=== PATIENT | male | born 1970 | race Caucasian/White ===

== ENCOUNTER 2020-02-14 11:46 | Emergency (ER) | payer MEDICAID, SELFPAY ==
[2020-02-14 11:58] VITALS: BP 117/71; PULSE 76; RESP 16; TEMP 36.9; O2SAT 98
--- NOTE | 2020-02-14 12:19 | ED.ABDPAIN ---
HPI - Abdominal Pain General Chief Complaint: Abdominal Pain Stated Complaint: abd pain Time Seen by Provider: 02/14/20 12:19 Source: patient and RN notes reviewed Mode of arrival: ambulatory Limitations: no limitations History of Present Illness HPI narrative: Patient presents today with a 10 to 14-day history of right upper quadrant abdominal pain. Reports the pain is constant, but does wax and wane. He also reports decreased appetite for same timeframe, with 15 pound weight loss so far. Denies fever, nausea, vomiting, diarrhea, depression, urinary symptoms, URI symptoms. Currently rates his pain 4/10. Pain is worse after eating. He has been using cannabis with relief. Pain decreases if he lies on his right side. History of appendectomy. MD elicited complaint: abdominal pain Related Data Home Medications Medication Instructions Recorded Confirmed No Home Medications 02/14/20 02/14/20 Allergies Allergy/AdvReac Type Severity Reaction Status Date / Time No Known Allergies Allergy Verified 02/14/20 11:53 Review of Systems Review of Systems: Narrative: CONSTITUTIONAL: Denies body aches, fever, chills, or sweats. EYES: Denies visual changes, redness, or discharge. ENT: Denies rhinorrhea, congestion, sore throat, or otalgia. CARDIOVASCULAR: Denies chest pain, palpitations, or edema. RESPIRATORY: Denies cough or dyspnea. GASTROINTESTINAL: Denies nausea, vomiting, or diarrhea.+ At upper quadrant abdominal pain, decreased appetite GENITOURINARY: Denies dysuria or hematuria. SKIN: Denies rash, itching, or wounds. MUSCULOSKELETAL: Denies back pain, joint pain, or myalgia. NEUROLOGIC: Denies headache, numbness, tingling, or weakness. PSYCH: Denies depression or anxiety. [facility] Surgical History Surgical History (Updated 02/14/20 @ 12:22 by Ila Keith, [facility], ) History of appendectomy Family History Family History (Updated 08/09/19 @ 08:07 by DOCTOR UNKNOWN) Other Diabetes mellitus Family history of malignant neoplasm Social History Social History Smoking status: Former smoker Smoking end date: 11/03/08 Alcohol intake: current Gender identity (if verbalized by the patient): Male Comments At time of signature, I have reviewed and agree with nursing past medical, surgical, social and family history unless otherwise noted. Please see nursing chart for further information. There is no relevant family history pertinent to the presenting complaint Exam Narrative: Exam Narrative: GENERAL: Well-appearing, well-nourished, moderate pain distress, guarding the right abdomen upon arrival. HEAD: Normocephalic, atraumatic. EYES: EOMI. No redness or drainage. Conjunctivae normal. ENT: Mucous membranes pink and moist. NECK: Normal AROM. Supple. No lymphadenopathy. CHEST: No respiratory distress. Clear to auscultation. HEART: Regular rate and rhythm. No murmur appreciated. Normal peripheral pulses. ABDOMEN: Soft, nondistended, normal active bowel sounds. Tenderness to the right upper quadrant with even light touch. + Rebound of the right upper abdomen. EXTREMITIES: Normal range of motion. No edema. SKIN: Warm, dry, no rash. Capillary refill normal. Normal skin turgor. NEURO: No focal deficits. Alert and oriented x3. Gait steady. PSYCH: Normal affect. No signs of depression or anxiety. Course Vital Signs Vital signs: Vital Signs Temperature 98.4 F 02/14/20 11:58 Pulse Rate 76 02/14/20 11:58 Respiratory Rate 16 02/14/20 11:58 Blood Pressure 117/71 02/14/20 11:58 Pulse Oximetry 98 02/14/20 11:58 Temperature 98.4 F 02/14/20 11:58 Pulse Rate 76 02/14/20 11:58 Respiratory Rate 16 02/14/20 11:58 Blood Pressure 117/71 02/14/20 11:58 Pulse Oximetry 98 02/14/20 11:58 Reviewed Transfer Transfered to: Aly Transfer rationale: Abdominal pain Accepting physician: Harshil MDM - Abdominal Pain MDM Narrative Medical decision making narrative: Jeancarlos
== END 2020-02-14 12:20 | disposition short-term general hospital (02) ==
PROVIDERS: Emergency Provider Nurse Practitioner
DX: R10.11 Right upper quadrant pain (principal); Z87.891 Personal history of nicotine dependence
CPT/HCPCS: 99212; G0463

== ENCOUNTER 2020-02-14 12:45 | Emergency (ER) | payer MEDICAID, SELFPAY ==
--- NOTE | ~2020-02-14 | CT_ITS ---
EXAMINATION: CT abdomen pelvis w con DATE: 02/14/2020 14:11 INDICATION: Abdominal pain TECHNIQUE: Computed tomography (CT) of the abdomen and pelvis was performed with 100 cc Omnipaque 350 intravenous contrast. The dose-length product was 350.25 mGy-cm. Automated exposure control and iter ative reconstruction technique were employed. COMPARISON: CT dated 05/30/2018 FINDINGS: Lung bases are unremarkable. Heart size normal. No significant pleural or pericardial effus ion. There are multiple ventral supraumbilical hernias containing fat. There is an umbilical hernia c ontaining small bowel which appears to be at least partially obstructed. No evidence for strangulatio n. Colonic diverticulosis without evidence for diverticulitis. The liver, spleen, pancreas, adrenal g lands and kidneys are unremarkable. No significant vascular abnormality. No lymphadenopathy. No abnor mal pelvic masses or fluid collections. No acute osseous abnormality. IMPRESSION: 1. Umbilical hernia containing small bowel which appears to be at least partially obstructed. 2: Multiple ventral supraumbilical hernias containing fat. Reviewed, dictated and finalized at location A. IMPRESSION: 1. Umbilical hernia containing small bowel which appears to be at least partial ly obstructed. 2: Multiple ventral supraumbilical hernias containing fat.
--- NOTE | ~2020-02-14 | US_ITS ---
EXAMINATION: US right upper quadrant EXAM DATE: 02/14/2020 13:50 INDICATION: Right upper quadrant abdominal pain. TECHNIQUE: Multiple grayscale and Doppler images of the abdomen right upper quadrant were obtained (b y a technologist who performed the scan) and subsequently reviewed. Comparison is made to prior exami nation from 09/12/2014. FINDINGS: The pancreatic head and body are normal in appearance. The pancreatic tail is not visualized. The l iver has normal echogenicity and contour. There are no focal liver lesions identified. There is no evidence of intrahepatic biliary duct dilation. Portal venous flow was seen in the hepatopedal, nor mal direction and has normal Doppler waveform. No right-sided hydronephrosis. Common bile duct measures 4 mm, which is normal. The gallbladder wall is normal in thickness, with ex pected amount of distention. No sonographic evidence of pericholecystic fluid. There is no cholelit hiases. There is gallbladder adenomyomatosis. Technologist performing exam reports patient did not de monstrate sonographic Alex's sign. Please note that this sign is less reliable in patients who hav e received pain medication. IMPRESSION: Gallbladder adenomyomatosis. Otherwise unremarkable exam. Reviewed, dictated and finalized at location B.
[2020-02-14 12:50] VITALS: PULSE 64; RESP 16; TEMP 36.6; O2SAT 100
[2020-02-14 13:06] LABS: Basophils Absolute Auto 0.1 K/mm3 (0.0-0.1); Basophils Percent Auto 0.6 % (0.2-1.2); Eosinophils Absolute Auto 0.2 K/mm3 (0-0.3); Eosinophils Percent Auto 2.2 % (0-4.4); Hematocrit 45.4 % (42.0-52.0); Immature Granulocyte Absolute 0.09 K/mm3 (0.00-0.031); Immature Granulocyte Percent A 0.9 % (0-0.5); Lymphocytes Absolute Auto 2.94 K/mm3 (0.9-3.2); Lymphocytes Percent Auto 30.1 % (18.3-44.2); Mean Corpuscular Hemoglobin 29.6 pg (26-34); Mean Corpuscular Volume 89.7 fl (80-100); Mean Platelet Volume 9.4 fl (7.4-10.4); Monocytes Absolute Auto 0.9 K/mm3 (0.1-0.6); Monocytes Percent Auto 8.9 % (2.6-8.5); Neutrophils Absolute Auto 5.6 K/mm3 (1.3-6.7); Neutrophils Percent Auto 57.3 % (45.5-73.1); Platelet Count Result 285 k/mm3 (150-375); Red Blood Count 5.06 M/mm3 (4.6-6.20); Red Cell Distribution Width 13.2 % (11.5-14.5); White Blood Count 9.8 K/mm3 (4.5-10.0)
--- NOTE | 2020-02-14 13:15 | ED.ABDPAIN ---
HPI - Abdominal Pain General Chief Complaint: Abdominal Pain Stated Complaint: abdominal pain Time Seen by Provider: 02/14/20 13:10 Source: patient and family Mode of arrival: ambulatory History of Present Illness HPI narrative: Patient is a 49-year-old male who presents to emergency department for evaluation of right upper quadrant pain radiating to the back from urgent care notes that the pain is been off and on for the last 2 weeks worse with eating patient denies vomiting or diarrhea or similar occurrence in the past on arrival is in no distress and minimal pain patient denies other complaints at this time Related Data Allergies Allergy/AdvReac Type Severity Reaction Status Date / Time No Known Allergies Allergy Verified 02/14/20 12:54 Review of Systems Review of Systems: All systems reviewed & are unremarkable except as noted in HPI and below PMFSH Surgical History Surgical History History of appendectomy Family History Family History (Updated 08/09/19 @ 08:07 by DOCTOR UNKNOWN) Other Diabetes mellitus Family history of malignant neoplasm Social History Social History Smoking status: Former smoker Smoking end date: 11/03/08 Alcohol intake: current Gender identity (if verbalized by the patient): Male Exam Narrative: Exam Narrative: GENERAL: Well-appearing, well-nourished, and in no acute distress. HEAD: Normocephalic, atraumatic. EYES: PERRLA and EOMI. ENT: Nares clear, no rhinorrhea or epistaxis. Mucous membranes moist. CHEST: Clear to auscultation. No respiratory distress. No wheezes rales or rhonchi HEART: Regular rate and rhythm. No murmur heard. Normal peripheral pulses. ABDOMEN: Soft, right upper quadrant tenderness without rebound or guarding, nondistended, normal active bowel sounds. EXTREMITIES: Normal range of motion. No edema. SKIN: Warm, dry, no rash. NEURO: No focal deficits. Alert and oriented x3. PSYCH: Normal mood and affect. Course Course Emergency Course: Patient in the room aware of case findings treatment plan and diagnosis agreeing to follow-up with gastroenterology and surgery as instructed provided with reasons to return Consultations Consultation #1: Discussed case with system configuration specialist who will follow the patient on basis given his need to go home patient is to be provided with reasons to return Date: 02/14/20 Time: 15:19 Vital Signs Vital signs: Vital Signs Temperature 97.9 F 02/14/20 12:50 Pulse Rate 64 02/14/20 12:50 Respiratory Rate 16 02/14/20 12:50 Pulse Oximetry 100 02/14/20 12:50 Temperature 97.9 F 02/14/20 12:50 Pulse Rate 64 02/14/20 12:50 Respiratory Rate 16 02/14/20 12:50 Pulse Oximetry 100 02/14/20 12:50 MDM - Abdominal Pain MDM Narrative Medical decision making narrative: Patient is a 49-year-old male who presents to emergency department for evaluation of right upper quadrant abdominal pain for 2 weeks was found to have elevated lipase with remainder of findings unremarkable patient had ventral hernia that is easily reducible. . Patient referred to GI and surgery for evaluation of these findings. Patient notes that he does not want to stay in the hospital due to living by himself and having animals to care for. Patient notes that he will return if symptoms worsen and is agreeing to do so and was provided with reasons to return. Patient will be placed on a low-fat diet. Lab Data Result diagrams: 02/14/20 12:59 02/14/20 12:59 Labs: Lab Results 02/14/20 02/14/20 Range/Units 12:59 12:59 WBC 9.8 (4.5-10.0) K/mm3 RBC 5.06 (4.6-6.20) M/mm3 Hgb 15.0 (14.0-18.0) g/dL Hct 45.4 (42.0-52.0) % MCV 89.7 (80-100) fl MCH 29.6 (26-34) pg MCHC 33.0 (32-36) g/dl RDW 13.2 (11.5-14.5) % Plt Count 285 (150-375) k/mm3 MPV 9.4 (7.4-10.4) fl Imm
[2020-02-14 13:21] LABS: Alanine Aminotransferase 15 U/L (4-50); Albumin Level 4.6 g/dL (3.5-5.1); Alkaline Phosphatase 87 U/L (38-126); Aspartate Amino Transferase 22 U/L (17-59); Bilirubin,Total 0.5 mg/dL (0.2-1.3); Blood Urea Nitrogen 12 mg/dL (9-20); Calcium 8.7 mg/dL (8.4-10.2); Carbon Dioxide 27 mmol/L (22-30); Chloride 104 mmol/L (98-107); Estimated CRCL calculation 86 ml/min; Estimated Glomerular Filt Rate > 60; Glucose 117 mg/dL (75-110); Lipase 1642 U/L (23-300); Sodium 137 mmol/L (137-145)
[2020-02-14 13:31] LABS: Add Urine Microscopic? YES; Appearance Urine Clear (Clear); Bacteria Urine Trace /hpf; Bilirubin Urine Negative (Negative); Blood Urine 1+ (Negative); Color Urine Yellow (Yellow); Glucose Urine UA Negative (Negative); Ketones Urine Negative (Negative); Leukocyte Esterase Ur Negative LEU/UL (Negative); Mucus Urine Rare /lpf; Nitrate Urine Negative (Negative); Protein Urine Negative (Negative); Specific Grav Ur 1.021 (1.001-1.035); Urobilinogen Urine Negative mg/dL (<2.0); WBC Urine 0-3 /hpf
[2020-02-14] MEDS: FAMOTIDINE 20 MG/2 ML VIAL IV PUSH (13:41)
[2020-02-14] MEDS: SODIUM CHLORIDE 0.9% IV 1,000 ML 999 ML IV CONT (13:41)
[2020-02-14] MEDS: ONDANSETRON INJ 4 MG/2 ML VIAL IV PUSH (13:41)
[2020-02-14] MEDS: MORPHINE SULFATE 4 MG/ML INJ IV PUSH (13:42)
[2020-02-14 15:25] VITALS: BP 94/66; PULSE 88; RESP 16; O2SAT 97
== END 2020-02-14 15:32 | disposition home or self-care (01) ==
PROVIDERS: Emergency Provider Emergency Medicine
DX: K43.9 Ventral hernia without obstruction or gangrene (principal); R10.11 Right upper quadrant pain; R74.8 Abnormal levels of other serum enzymes; Z87.891 Personal history of nicotine dependence; K42.9 Umbilical hernia without obstruction or gangrene
CPT/HCPCS: 36415; 74177; 76705; 80053; 81001; 83690; 85025; 96361; 96374; 96375; 99284; J2270; J2405; J7030; Q9967

== ENCOUNTER → 2020-04-24 12:36 | Outpatient (CLI) | payer BC, SELFPAY ==
--- NOTE | ~2020-04-24 | XR_ITS ---
XR chest 2V DATE: 04/24/2020 12:53 INDICATION: Past smoker TECHNIQUE: PA and lateral views COMPARISON: None FINDINGS: Normal heart size. No hilar or mediastinal enlargement. No pulmonary infiltrate or consolidation, pleural effusion or pulmonary vascular congestion or pneumo thorax. Included skeletal structures are unremarkable. IMPRESSION: No active cardiopulmonary disease Reviewed, dictated and finalized at location A.
== END ==
PROVIDERS: PCP Emergency Medicine; Visit Provider Emergency Medicine
DX: Z87.891 Personal history of nicotine dependence (principal)
CPT/HCPCS: 71046

== ENCOUNTER 2020-06-06 01:08 | Outpatient (CLI) | payer BC, SELFPAY ==
[2020-06-06 19:35] LABS: SARS-CoV-2 RNA PCR Negative
== END 2020-06-06 01:09 | disposition home or self-care (01) ==
LOC: ANHCOVIDDT 01:08
PROVIDERS: PCP Emergency Medicine; Visit Provider Surgery
DX: Z01.812 Encounter for preprocedural laboratory examination (principal); Z11.59 Encounter for screening for other viral diseases
CPT/HCPCS: 87635; C9803; U0003

== ENCOUNTER 2020-06-06 08:15 | Outpatient (CLI) | payer BC, SELFPAY ==
--- NOTE | ~2020-06-06 | XR_ITS ---
EXAMINATION: XR chest 2V DATE: 06/06/2020 08:45 INDICATION: History of tobacco use TECHNIQUE: PA and lateral views of the chest are obtained. COMPARISON: 04/24/2020 FINDINGS: The lungs are free of acute opacities. Calcified pulmonary nodules are consistent with old granulomatous disease. There is no pleural effusion or pneumothorax. The cardiomediastinal silhouette is normal. There is mild thoracic spondylosis. IMPRESSION: 1. No acute cardiopulmonary abnormality. Reviewed, dictated and finalized at location A.
--- NOTE | 2020-06-06 08:16 | ECG_ITS ---
Measurements Intervals Cameron Rate: 59 P: 48 MA: 178 QRS: 17 QRSD: 108 T: 12 QT: 403 QTc: 401 Interpretive Statements SINUS BRADYCARDIA DELAYED PRECORDIAL R/S TRANSITION BASELINE ARTIFACT- II, III, AVF BORDERLINE ECG Electronically Signed On 06-06-2020 8:38:45 CDT by Rikki Arriaza D.O.
[2020-06-06 08:54] LABS: Basophils Absolute Auto 0.1 K/mm3 (0.0-0.1); Basophils Percent Auto 0.6 % (0.2-1.2); Eosinophils Absolute Auto 0.5 K/mm3 (0-0.3); Eosinophils Percent Auto 4.2 % (0-4.4); Hematocrit 43.8 % (42.0-52.0); Hemoglobin 14.7 g/dL (14.0-18.0); Immature Granulocyte Absolute 0.08 K/mm3 (0.00-0.031); Immature Granulocyte Percent A 0.7 % (0-0.5); Lymphocytes Absolute Auto 3.53 K/mm3 (0.9-3.2); Lymphocytes Percent Auto 31.8 % (18.3-44.2); Mean Corpuscular HGB Conc 33.6 g/dl (32-36); Mean Corpuscular Hemoglobin 29.8 pg (26-34); Mean Corpuscular Volume 88.8 fl (80-100); Monocytes Absolute Auto 1.2 K/mm3 (0.1-0.6); Monocytes Percent Auto 10.5 % (2.6-8.5); Neutrophils Absolute Auto 5.8 K/mm3 (1.3-6.7); Neutrophils Percent Auto 52.2 % (45.5-73.1); Platelet Count Result 216 k/mm3 (150-375); Red Blood Count 4.93 M/mm3 (4.6-6.20); White Blood Count 11.1 K/mm3 (4.5-10.0)
[2020-06-06 09:05] LABS: Anion Gap 10.8 mmol/L (7-16); Blood Urea Nitrogen 17 mg/dL (9-20); Calcium 8.5 mg/dL (8.4-10.2); Carbon Dioxide 22 mmol/L (22-30); Chloride 107 mmol/L (98-107); Estimated Glomerular Filt Rate > 60; Glucose 121 mg/dL (75-110); Potassium 3.8 mmol/L (3.4-5.0); Sodium 136 mmol/L (137-145)
== END 2020-06-06 08:16 | disposition home or self-care (01) ==
PROVIDERS: PCP Emergency Medicine; Visit Provider Surgery
DX: Z01.818 Encounter for other preprocedural examination (principal); K43.2 Incisional hernia without obstruction or gangrene
CPT/HCPCS: 36415; 71046; 80048; 85025; 86850; 86900; 86901; 87635; 93005; C9803; U0003

== ENCOUNTER 2020-06-10 10:14 | Inpatient (IN) | payer BC, SELFPAY ==
[2020-05-24 13:49] VITALS: BMI 24.3
[2020-06-08] VITALS (11 sets, daily range): BP systolic 102–155; BP diastolic 52–85; PULSE 46–90; RESP 14–24; TEMP 36.2–36.8; O2SAT 95–100
--- NOTE | 2020-06-08 07:20 | PM.IMHP ---
H&P: HPI History of Present Illness Date/Time: 06/08/20 07:20 Chief complaint: Incisional Hernias Narrative: The patient is a 50-year-old man who has been experiencing periumbilical abdominal pain. He had a CT scan which showed an incisional hernia at the umbilicus with multiple supraumbilical incisional hernias. He has a history of laparoscopic appendectomy in February of 2006. He had a ruptured appendix and was returned to surgery the next day, February 17, 2006, for exploratory laparotomy and drainage of a large pelvic abscess. He subsequently healed well but appears to now have multiple incisional hernias from his laparotomy in 2005. The patient does use cannabis regularly for chronic issues of anxiety and pain. He was seen in the office and is taken to surgery now for incisional hernia repair with mesh and possible bilateral transversus abdominis myofascial flap advancement. Review of Systems Review of Systems: All systems reviewed & are unremarkable except as noted in HPI and below Constitutional: Constitutional: Denies headache(s) ENT: Denies headache(s) Cardiovascular: Cardiovascular: Denies chest pain and Denies dyspnea Respiratory: Respiratory: Denies cough and Denies dyspnea Gastrointestinal: Gastrointestinal: Denies bloating, Denies constipation and Denies nausea Neurologic: Denies confusion and Denies headache(s) Psychiatric: Psychiatric: Denies confusion PMFSH Surgical History Surgical History History of appendectomy History of knee surgery left History of tonsillectomy Family History Family History Mother Colon cancer Other Bipolar 1 disorder IDDM (insulin dependent diabetes mellitus) Other Diabetes mellitus Family history of malignant neoplasm Social History Social History Smoking packs per day: 1 Smoking cigarettes per day: 20.0 Years smoked: 30 Smoking pack-years: 30.00 Smoking status: Former smoker Tobacco type: cigarettes Smoking end date: 11/03/18 Alcohol intake: current Substance use: current Substance use type: marijuana Last use: NOVEMBER 2018 Living arrangements: with family Additional occupation/education comments: Maintenance Gender identity (if verbalized by the patient): Male Spiritual care concerns: No Meds Home Medications and Allergies Home Medications Medication Instructions Recorded Confirmed Type simvastatin 40 mg PO HS 05/24/20 05/24/20 History Allergies Allergy/AdvReac Type Severity Reaction Status Date / Time No Known Allergies Allergy Verified 05/24/20 13:58 Exam Const: General: comfortable, no acute distress, alert and awake HENMT: Head: normocephalic and atraumatic Mouth: Yes Normal oral and palatal mucosa present Eyes: Conjunctivae: conjunctivae normal Pupils: Equal, round and reactive pupils present EOM: EOMs intact bilaterally Neck: Neck: normal visual inspection, no lymphadenopathy and nontender Resp: Effort & Inspection: normal respiratory effort Auscultation: clear to auscultation bilaterally Cardio: Rate: regular rate Rhythm: regular rhythm Heart sounds: no gallops, no murmurs and no rubs GI: Inspection: non-distended, scar ( Hypogastric area all the way down to the pubis) and visible herniation GI Palp: Yes Soft to palpation, Yes Tenderness to palpation present (GI) ( periumbilical), No Hepatomegaly present, No Splenomegaly present and Yes Hernia present ( to cm defect in the umbilical area of the incision, reducible) Auscultation: normal bowel sounds Skin: Lesions: no lesions Rashes: no rashes Neuro: General: no focal motor deficits and CN's II-XI intact bilaterally Cranial nerves: Yes Equal, round and reactive pupils present, Yes Bilaterally intact EOM present, Yes facial symmetry and Yes Midline tongue present Speech: nor
[2020-06-08] MEDS: ACETAMINOPHEN 500 MG TABLET 1000 MG PO ×3 (09:23→23:00)
[2020-06-08] MEDS: KETOROLAC 15 MG/ML VIAL (*BKC) IV PUSH (09:33)
[2020-06-08] MEDS: LACTATED RINGERS 1,000 ML 30 ML IV CONT ×2 (09:33→14:32)
--- NOTE | 2020-06-08 09:57 | WPDANESEPPF ---
Anes - Initial Pre Proc Eval Procedure: Operation Date: 06/08/20 10:30 Proposed Procedures p Repair Multiple Incisional Hernias With Mesh, Possible Posterior Component Separation - Eliel Lucero MD Date/Time: 06/08/20 09:57 Surgeon: Eliel Lucero MD Pre Op Diagnosis: Incisional Hernias Patient Data Age: 50 Gender: M Height: 5 ft 9 in Weight: 79.6 kg Last Vital Signs Temp 36.2 C L 06/08/20 09:25 Pulse 55 L 06/08/20 09:25 Resp 20 06/08/20 09:25 BP 102/65 06/08/20 09:25 Pulse Ox 98 06/08/20 09:25 Allergies Allergy/AdvReac Type Severity Reaction Status Date / Time No Known Allergies Allergy Verified 06/08/20 09:22 Home Medications Medication Instructions Recorded Confirmed Type simvastatin 40 mg PO HS 05/24/20 05/24/20 History Patient hx anesthesia problems: none Family hx anesthesia problems: none PMFSH Past Medical History Medical History (Updated 06/08/20 @ 09:58 by Esequiel Martini MD) Overweight Surgical History Surgical History History of appendectomy History of knee surgery left History of tonsillectomy Family History Family History Mother Colon cancer Other Bipolar 1 disorder IDDM (insulin dependent diabetes mellitus) Other Diabetes mellitus Family history of malignant neoplasm Social History Social History Smoking packs per day: 1 Smoking cigarettes per day: 20.0 Years smoked: 30 Smoking pack-years: 30.00 Smoking status: Former smoker Tobacco type: cigarettes Smoking end date: 11/03/18 Alcohol intake: current Substance use: current Substance use type: marijuana Last use: NOVEMBER 2018 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 Questions were solicited and answers provided to the satisfaction of the patient/family/POA.
[2020-06-08] MEDS: ceFAZolin 2 GM/D5W 50 ML 2 GM/50 ML BAG IVPB (10:53)
--- NOTE | 2020-06-08 15:11 | PM.PROC ---
Procedure Note - Detailed Date of procedure: 06/08/20 Pre-op diagnosis: Incisional Hernias Incisional hernia Post-op diagnosis: same Procedure performed: Retro rectus repair incisional hernia with soft polypropylene mesh; left sided transversus abdominis myofascial flap advancement 6 cm. Description of procedure: The patient was taken to surgery and induced into general anesthesia. Marshall catheter was placed. The entire abdomen was prepped and draped. The previous scar was excised and discarded. Dissection was carried down through the midline and the periumbilical hernia was defined. The clinically apparent hernia was periumbilical, but there were multiple other fascial defects and small hernias throughout the old incision in the midline. There were extensive adhesions to the anterior abdominal wall. There were so many adhesions, it was difficult to gain access to the peritoneal cavity. The patient has a history of a large pelvic abscess. Most of the adhesions were in the right lower quadrant associated with his previous ruptured appendicitis. These were taken down sharply. There were far few were adhesions on the patient's left side then on the right side. Taking down these anterior abdominal wall adhesions was extensive, particularly on the right. The periumbilical hernia sac was excised from the fascia and the subcutaneous. The other hernias were reduced and hernia sacs excised as well. They were much smaller. Cautery was used for hemostasis. I started with dissection on the patient's right side. A retro rectus plane was developed and extended the length of the wound as well as all the way down to the suprapubic area. It was also extended up under the xiphoid in the cephalad direction. I dissected laterally to the border of the right rectus abdominis muscle. I then changed sides and addressed the patient's left side. Again, dissection was carried out such that the retro rectus plane was established. This plane was continued cephalad and caudad to the same extent as the right side had been done. I also divided the posterior rectus fascia on both sides up to the xiphoid and established a plane of continuity that allowed the peritoneum and posterior rectus fascia to be continuous from the right side to the left side under the xiphoid process. Similarly, I dissected the posterior rectus down to the semi circular line and then established a plane of dissection below the peritoneum that went across the midline to the right side. I brought the posterior rectus sheaths in proximity but there was too much tension to close them without further release. I decided to go ahead with the transversus abdominis release on the patient's left. I started under the left costal margin. I divided the transversus abdominis muscle there and then proceeded dividing the transversus over a clamp and using the cautery. This was continued from cephalad all the way down to the semi circular line. From there I was then able to complete the dissection plane laterally all the way to the axillary line to create a wide space in the retromuscular plane for mesh placement. Again, cautery was used for hemostasis. There were no holes to repair. A very wide dissection laterally was carried out. I then went to the patient's left side and reviewed the advancement of the left-sided transversus abdominis release of about 6 cm being approximated to the retro rectus dissection on the right side. This looked like it could be sewn together with minimal tension and no right-sided transversus abdominis release was necessary. Once this was completed, I reviewed all the areas of dissection. Hemostasis was excellent and we could proceed with the repair. I then closed the posterior rectus fascia to itself with running 0 Vicryl suture. An extra large piece of soft polypropylene mesh was brought into the field. The lateral corners were trimmed appropriately. The mesh was placed in gurvinder fashion. It c
--- NOTE | 2020-06-08 15:32 | SUR.PHASEI ---
1530 SBAR FAXED FLOOR NOTIFIED
--- NOTE | 2020-06-08 16:00 | ADMGEN ---
This patient, Elio Shelton, was admitted to Medical Room 340-01. Patient/family oriented to hospital policies and general routines including ID bracelet, bed and alarms, visiting hours, pain management, procedures, bathroom and other care routines, personal items, smoking policy, room service/diet, and visiting hours. Valuables list has been completed. Information on how to activate the Rapid Response Team has been discussed. Patient/Family are encouraged to report perceived risks to care and to ask questions if they do not understand what they are told or what they should do.
[2020-06-08] MEDS: LACTATED RINGERS 1,000 ML 100 ML IV CONT (16:15)
[2020-06-08] MEDS: ONDANSETRON INJ 4 MG/2 ML VIAL IV PUSH ×2 (16:15→23:30)
[2020-06-08] MEDS: IBUPROFEN IV 800 MG/200 ML 800 MG/200 ML BAG 400 MG IVPB ×2 (18:08→22:59)
[2020-06-08] MEDS: ENOXAPARIN 30 MG/0.3 ML SYRINGE SUB-Q (20:54)
[2020-06-08] MEDS: SENNA/DOCUSATE SODIUM TABLET 2 TAB PO (20:54)
[2020-06-08] MEDS: SIMVASTATIN 20 MG TABLET 40 MG PO (20:55)
[2020-06-09] VITALS (8 sets, daily range): BP systolic 105–150; BP diastolic 52–88; PULSE 51–94; RESP 16–18; TEMP 36.5–37.6; O2SAT 95–100; BMI 25.9
[2020-06-09] MEDS: LACTATED RINGERS 1,000 ML 100 ML IV CONT (03:46)
[2020-06-09] MEDS: ONDANSETRON INJ 4 MG/2 ML VIAL IV PUSH (03:48)
[2020-06-09] MEDS: IBUPROFEN IV 800 MG/200 ML 800 MG/200 ML BAG 400 MG IVPB ×4 (05:19→23:26)
[2020-06-09] MEDS: ACETAMINOPHEN 500 MG TABLET 1000 MG PO (05:22)
[2020-06-09 06:16] LABS: Hematocrit 41.7 % (42.0-52.0); Hemoglobin 14.2 g/dL (14.0-18.0); Mean Corpuscular HGB Conc 34.1 g/dl (32-36); Mean Corpuscular Hemoglobin 29.9 pg (26-34); Mean Corpuscular Volume 87.8 fl (80-100); Mean Platelet Volume 10.7 fl (7.4-10.4); Platelet Count Result 259 k/mm3 (150-375); Red Blood Count 4.75 M/mm3 (4.6-6.20); White Blood Count 29.9 K/mm3 (4.5-10.0)
[2020-06-09 06:55] LABS: Anion Gap 11.3 mmol/L (7-16); Blood Urea Nitrogen 13 mg/dL (9-20); Calcium 8.8 mg/dL (8.4-10.2); Carbon Dioxide 29 mmol/L (22-30); Chloride 102 mmol/L (98-107); Estimated CRCL calculation 85 ml/min; Estimated Glomerular Filt Rate > 60; Glucose 149 mg/dL (75-110); Potassium 4.3 mmol/L (3.4-5.0); Sodium 138 mmol/L (137-145)
--- NOTE | 2020-06-09 07:52 | WPDANESPN ---
Anes - Prog Note Post-Op Date/Time: 06/09/20 07:52 Cardiovascular status: normal Respiratory status: normal Airway patency: baseline Mental status: baseline Post-Op hydration status: normal Vital Signs: Last Vital Signs Temp 37.6 C H 06/09/20 05:07 Pulse 57 L 06/09/20 05:07 Resp 18 06/09/20 05:07 BP 125/63 06/09/20 05:07 Pulse Ox 96 06/09/20 05:07 I/O: Intake & Output 06/08/20 06/08/20 06/09/20 15:59 23:59 07:59 Intake Total 423 676 2942 Output Total 120 430 975 Balance 230 240 730 Laboratory Tests 06/09/20 05:12 06/09/20 05:12 06/09/20 06/09/20 05:12 05:12 WBC 29.9 H RBC 4.75 Hgb 14.2 Hct 41.7 L MCV 87.8 MCH 29.9 MCHC 34.1 RDW 13.0 Plt Count 259 MPV 10.7 H Sodium 138 Potassium 4.3 Chloride 102 Carbon Dioxide 29 Anion Gap 11.3 BUN 13 Creatinine 0.90 Estim Creat Clear Calc 85 Estimated GFR > 60 Glucose 149 H Calcium 8.8 Post-procedural complaints: none Patient Feedback: Patient satisfied with anesthetic care.
[2020-06-09] MEDS: polyethylene glycoL 3350 17 GM POWD.PACK PO (09:00)
[2020-06-09] MEDS: ENOXAPARIN 30 MG/0.3 ML SYRINGE SUB-Q ×2 (09:01→20:12)
--- NOTE | 2020-06-09 10:14 | PM.PNGS ---
Progress Note: A&P Assessment and Plan (1) Incisional hernia without mention of obstruction or gangrene: Qualifiers: Obstruction and gangrene presence: without obstruction or gangrene Qualified Code(s): K43.2 - Incisional hernia without obstruction or gangrene Code(s): K43.2 - Incisional hernia without obstruction or gangrene Status: Chronic Assessment and Plan: doing well postop day 1. Will get patient out of bed and slowly advance diet. Repeat labs again tomorrow. Start dressing changes tomorrow. Will start Protonix for indigestion. Saline lock IV with good p.o. intake. (2) Cannabis dependence: Code(s): F12.20 - Cannabis dependence, uncomplicated Status: Chronic Assessment and Plan: Has p.r.n. Ativan ordered for anxiety. Subjective Subjective Date/Time Seen: 06/09/20 10:14 Post Op day: 1 Patient reports: pain is less, no flatus, no bowel movement, afebrile and other ( complains that IV was keeping him awake) Interval history: pain is well controlled. Also has some indigestion. Review of Systems Review of Systems: All systems reviewed & are unremarkable except as noted in HPI and below Constitutional: Constitutional: Denies headache(s) Cardiovascular: Cardiovascular: Denies chest pain and Denies dyspnea Respiratory: Respiratory: Denies cough and Denies dyspnea Gastrointestinal: Gastrointestinal: Reports as per HPI Neurologic: Denies confusion and Denies headache(s) Exam Const: General: comfortable and no acute distress; No confusion Orientation/consciousness: patient oriented x3 and No confusion GI: Inspection: incision ( Dressing dry and intact, serosanguineous out KIMBERLEY) GI Palp: Yes Soft to palpation, Yes Tenderness to palpation present (GI) ( minimal), No Guarding due to palpation present (GI) and No Rebound tenderness present Auscultation: Hypoactive bowel sounds present Neuro: General: patient oriented x3, no focal motor deficits and No confusion Extrem: General: no calf tenderness and no edema Psych: Affect: normal affect Insight: Good insight present (Psych) Judgement: Good judgement present (Psych) Objective Data Vital Signs Vital Signs: Vital Signs - 24 hr 06/08/20 14:35 06/08/20 14:50 06/08/20 15:05 Temperature 36.5 C Pulse Rate 90 75 71 Respiratory Rate 24 H 18 18 Blood Pressure 155/85 H 153/63 H Pulse Oximetry 99 97 98 06/08/20 15:14 06/08/20 15:31 06/08/20 16:15 Temperature 36.4 C Pulse Rate 78 70 46 L Respiratory Rate 20 20 20 Blood Pressure 145/78 H 144/65 H 132/82 Pulse Oximetry 100 95 96 06/08/20 16:30 06/08/20 17:00 06/08/20 18:00 Temperature 36.4 C 36.4 C 36.4 C L Pulse Rate 48 L 64 66 Respiratory Rate 20 22 H 20 Blood Pressure 132/74 132/62 126/54 L Pulse Oximetry 97 98 98 06/08/20 21:00 06/09/20 00:19 06/09/20 02:00 Temperature 36.8 C 36.9 C 37.2 C Pulse Rate 66 57 L 51 L Respiratory Rate 14 16 16 Blood Pressure 132/52 L 150/63 H 133/52 L Pulse Oximetry 97 100 99 06/09/20 05:07 06/09/20 08:00 Temperature 37.6 C H 37.0 C Pulse Rate 57 L 53 L Respiratory Rate 18 16 Blood Pressure 125/63 105/53 L Pulse Oximetry 96 98 Intake/Output Intake/Output: Intake & Output 06/06/20 06/07/20 06/08/20 06/09/20 23:59 23:59 23:59 23:59 Intake Total 1020 1705 Output Total 550 2325 Balance 470 -620 Meds/Results Medications: Active Medications Generic Name Dose Route Start Last Admin Trade Name Freq PRN Reason Stop Dose Admin Diphenhydramine HCl 25 mg 06/08/20 15:46 Benadryl Inj IV PUSH Q6H PRN Itching Enoxaparin Sodium 30 mg 06/08/20 21:00 06/09/20 09:01 Lovenox SUB-Q 30 mg Q12HR VÍCTOR Administration Lactated Ringer's 1,000 mls @ 80 mls/hr 06/08/20 15:46 06/09/20 05:49 Lr - Lactated Ringers Iv IV CONT 100 mls/hr .[id number] VÍCTOR Infusion Ibuprofen 800 mg in 200 mls @ 400 mls/hr 06/08/20 18:00 06/09/20 05:49 Caldolor 800 Mg/200 Ml IVPB
[2020-06-09] MEDS: PANTOPRAZOLE SODIUM IV 40 MG VIAL IV PUSH (11:21)
--- NOTE | 2020-06-09 14:26 | PCNSR ---
On 06/09/20, the student, [Kurt Mejias ], provided care and completed [facility] documentation on this patient. I have reviewed the student's documentation and agree with the findings.
[2020-06-09] MEDS: SIMVASTATIN 20 MG TABLET 40 MG PO (20:12)
[2020-06-09] MEDS: SENNA/DOCUSATE SODIUM TABLET 2 TAB PO (20:12)
[2020-06-10 02:00] VITALS: BP 124/65; PULSE 89; RESP 16; TEMP 36.9; O2SAT 99
[2020-06-10] MEDS: IBUPROFEN IV 800 MG/200 ML 800 MG/200 ML BAG 400 MG IVPB (05:17)
[2020-06-10 05:55] LABS: Hematocrit 35.9 % (42.0-52.0); Hemoglobin 11.9 g/dL (14.0-18.0); Mean Corpuscular HGB Conc 33.1 g/dl (32-36); Mean Corpuscular Hemoglobin 29.7 pg (26-34); Mean Corpuscular Volume 89.5 fl (80-100); Mean Platelet Volume 10.2 fl (7.4-10.4); Platelet Count Result 208 k/mm3 (150-375); Red Blood Count 4.01 M/mm3 (4.6-6.20); Red Cell Distribution Width 13.3 % (11.5-14.5); White Blood Count 17.4 K/mm3 (4.5-10.0)
[2020-06-10 06:03] LABS: Anion Gap 2 mmol/L (8-16); Blood Urea Nitrogen 15 mg/dL (9-20); Calcium 8.2 mg/dL (8.4-10.2); Carbon Dioxide 29 mmol/L (22-30); Chloride 108 mmol/L (98-107); Estimated CRCL calculation 77 ml/min; Estimated Glomerular Filt Rate > 60; Glucose 98 mg/dL (75-110); Potassium 3.9 mmol/L (3.4-5.0); Sodium 139 mmol/L (137-145)
[2020-06-10 06:28] VITALS: BP 126/64; PULSE 52; RESP 16; TEMP 36.4; O2SAT 98
[2020-06-10] MEDS: PANTOPRAZOLE 40 MG TABLET PO (09:00)
[2020-06-10] MEDS: polyethylene glycoL 3350 17 GM POWD.PACK PO (09:01)
[2020-06-10] MEDS: ENOXAPARIN 30 MG/0.3 ML SYRINGE SUB-Q ×2 (09:01→20:34)
--- NOTE | 2020-06-10 10:18 | PM.PNGS ---
Progress Note: A&P Assessment and Plan (1) Incisional hernia without mention of obstruction or gangrene: Qualifiers: Obstruction and gangrene presence: without obstruction or gangrene Qualified Code(s): K43.2 - Incisional hernia without obstruction or gangrene Code(s): K43.2 - Incisional hernia without obstruction or gangrene Status: Chronic Assessment and Plan: continues to improve. Start dressing changes today. DC IV ibuprofen scheduled dose. Oral analgesics. Continue ambulation. Repair intact and healing well. (2) Cannabis dependence: Code(s): F12.20 - Cannabis dependence, uncomplicated Status: Chronic Assessment and Plan: Has p.r.n. Ativan available but has not needed as yet. Subjective Subjective Date/Time Seen: 06/10/20 10:18 Post Op day: 2 Patient reports: no new complaints, pain is less, tolerating a regular diet and bowel movement Exam GI: Inspection: non-distended and incision ( Dry and intact, healing well, serosanguineous per KIMBERLEY) GI Palp: Yes Soft to palpation and Yes Tenderness to palpation present (GI) ( mild tenderness) Auscultation: normal bowel sounds Objective Data Vital Signs Vital Signs: Vital Signs - 24 hr 06/09/20 11:12 06/09/20 12:00 06/09/20 16:00 Temperature 36.5 C 36.6 C Pulse Rate 63 66 Respiratory Rate 16 16 Blood Pressure 118/52 L 115/88 Pulse Oximetry 95 98 100 06/09/20 22:02 06/10/20 02:00 06/10/20 06:28 Temperature 37.1 C 36.9 C 36.4 C L Pulse Rate 94 89 52 L Respiratory Rate 18 16 16 Blood Pressure 117/66 124/65 126/64 Pulse Oximetry 98 99 98 Intake/Output Intake/Output: Intake & Output 06/07/20 06/08/20 06/09/20 06/10/20 23:59 23:59 23:59 23:59 Intake Total 1020 3801 600 Output Total 550 3415 840 Balance 470 386 -240 Meds/Results Medications: Active Medications Generic Name Dose Route Start Last Admin Trade Name Freq PRN Reason Stop Dose Admin Hydrocodone Bitart/Acetaminophen 1 tab 06/10/20 10:16 [place] 5-325 Mg PO Q4H PRN Pain Rated 4-6 Hydrocodone Bitart/Acetaminophen 1 tab 06/10/20 10:16 [place] 10-325 Mg PO Q6H PRN Pain Rated 7-10 Diphenhydramine HCl 25 mg 06/08/20 15:46 Benadryl Inj IV PUSH Q6H PRN Itching Enoxaparin Sodium 30 mg 06/08/20 21:00 06/10/20 09:01 Lovenox SUB-Q 30 mg Q12HR VÍCTOR Administration Ibuprofen 800 mg in 200 mls @ 400 mls/hr 06/08/20 18:00 06/10/20 06:19 Caldolor 800 Mg/200 Ml IVPB Infused Q6HR VÍCTOR Infusion Ibuprofen 400 mg 06/10/20 10:16 Motrin PO Q6H PRN Pain Rated 1-3 Lorazepam 1 mg 06/08/20 17:30 Ativan Inj IV PUSH Q6H PRN Anxiety Morphine Sulfate 2 mg 06/09/20 10:08 Morphine Sulfate Inj IV PUSH Q2H PRN Pain Rated 4-6 Morphine Sulfate 4 mg 06/09/20 10:08 Morphine Sulfate Inj IV PUSH Q2H PRN Pain Rated 7-10 Naloxone HCl 0.1 mg 06/08/20 15:46 Narcan IV PUSH Q2M PRN Opiate Reversal Ondansetron HCl 4 mg 06/08/20 15:46 06/09/20 03:48 Zofran Inj IV PUSH 4 mg Q4H PRN Administration Nausea And Vomiting Pantoprazole Sodium 40 mg 06/10/20 09:00 06/10/20 09:00 Protonix PO 40 mg QAM VÍCTOR Administration Polyethylene Glycol 17 gm 06/09/20 09:00 06/10/20 09:01 Miralax PO 17 gm QAM VÍCTOR Administration Senna/Docusate Sodium 2 tab 06/08/20 21:00 06/09/20 20:12 Senokot S Tablet PO 2 tab HS VÍCTOR Administration Simvastatin 40 mg 06/08/20 21:00 06/09/20 20:12 Zocor PO 40 mg HS VÍCTOR Administration Labs Labs: Laboratory Results - last 24 hr 06/10/20 06/10/20 05:31 05:31 WBC 17.4 H RBC 4.01 L Hgb 11.9 L Hct 35.9 L MCV 89.5 MCH 29.7 MCHC 33.1 RDW 13.3 Plt Count 208 MPV 10.2 Sodium 139 Potassium 3.9 Chloride 108 H Carbon Dioxide 29 Anion Gap 2 L BUN 15 Creatinine 1.00 Estim Creat Clear Calc 77 Estimated
[2020-06-10 12:00] VITALS: BP 128/72; PULSE 70; RESP 18; TEMP 36.4; O2SAT 98
[2020-06-10] MEDS: ONDANSETRON INJ 4 MG/2 ML VIAL IV PUSH (15:55)
[2020-06-10 16:00] VITALS: BP 124/78; PULSE 72; RESP 18; TEMP 36.3; O2SAT 96
[2020-06-10] MEDS: SIMVASTATIN 20 MG TABLET 40 MG PO (20:32)
[2020-06-10] MEDS: SENNA/DOCUSATE SODIUM TABLET 2 TAB PO (20:34)
[2020-06-10] MEDS: IBUPROFEN 400 MG TABLET PO (20:37)
[2020-06-10] MEDS: traZODone HCL 50 MG TABLET PO (20:38)
[2020-06-10 21:34] VITALS: BP 116/64; PULSE 65; RESP 18; TEMP 36.3; O2SAT 98
[2020-06-11 02:03] VITALS: BP 119/65; PULSE 59; RESP 16; TEMP 36.3; O2SAT 97
[2020-06-11] MEDS: ONDANSETRON INJ 4 MG/2 ML VIAL IV PUSH (05:40)
[2020-06-11 06:37] LABS: Hematocrit 38.1 % (42.0-52.0); Hemoglobin 12.5 g/dL (14.0-18.0); Mean Corpuscular HGB Conc 32.8 g/dl (32-36); Mean Corpuscular Hemoglobin 29.8 pg (26-34); Mean Corpuscular Volume 90.9 fl (80-100); Mean Platelet Volume 10.1 fl (7.4-10.4); Platelet Count Result 225 k/mm3 (150-375); Red Blood Count 4.19 M/mm3 (4.6-6.20); Red Cell Distribution Width 13.4 % (11.5-14.5); White Blood Count 13.4 K/mm3 (4.5-10.0)
[2020-06-11 06:39] VITALS: BP 114/75; PULSE 68; RESP 18; TEMP 36.4; O2SAT 98
[2020-06-11 06:54] LABS: Anion Gap 6 mmol/L (8-16); Blood Urea Nitrogen 13 mg/dL (9-20); Calcium 8.7 mg/dL (8.4-10.2); Carbon Dioxide 28 mmol/L (22-30); Chloride 102 mmol/L (98-107); Estimated CRCL calculation 71 ml/min; Estimated Glomerular Filt Rate > 60; Glucose 191 mg/dL (75-110); Potassium 3.7 mmol/L (3.4-5.0); Sodium 136 mmol/L (137-145)
[2020-06-11] MEDS: PANTOPRAZOLE 40 MG TABLET PO (08:44)
[2020-06-11] MEDS: ENOXAPARIN 30 MG/0.3 ML SYRINGE SUB-Q (08:44)
[2020-06-11] MEDS: polyethylene glycoL 3350 17 GM POWD.PACK PO (08:46)
--- NOTE | 2020-06-11 10:45 | PM.DS ---
DS: Admitting Diagnosis Admitting Diagnosis Admitting Diagnosis: Incisional hernia without obstruction or gangrene DS: Discharge Diagnosis Discharge Diagnosis (1) Incisional hernia without mention of obstruction or gangrene: Qualifiers: Obstruction and gangrene presence: without obstruction or gangrene Qualified Code(s): K43.2 - Incisional hernia without obstruction or gangrene Code(s): K43.2 - Incisional hernia without obstruction or gangrene Status: Chronic Assessment and Plan: Patient had repair of multiple incisional hernias with left-sided transversus abdominis myofascial flap advancement and repair with soft polypropylene mesh on 06/08/2020. (2) Cannabis dependence: Code(s): F12.20 - Cannabis dependence, uncomplicated Status: Chronic Assessment and Plan: Ativan available p.r.n. in the hospital, patient did not use. DS: Summary Time Spent with Patient Time attestation: Total time spent providing and/or coordinating discharge services: Patient is a 50-year-old man who had a ruptured appendix in 2005. He had persistent signs of peritonitis and return to surgery the day after his laparoscopic appendectomy and was found to have a large pelvic abscess. He developed multiple incisional hernias from his midline incision. The clinically apparent hernia was in the periumbilical area but CT scan showed multiple other fascial defects in the midline. The patient was taken to surgery on June 08 and underwent incisional hernia repair with soft polypropylene mesh. Left-sided transversus abdominis myofascial flap advancement was performed as well. Following surgery, he did well. His diet was slowly advanced to regular. He did not have any problems with nausea or vomiting. Pain control was really not much of an issue. His retro rectus KIMBERLEY drain was removed on the day of discharge. He is discharged now in good condition. Exam GI: Inspection: incision ( Healing well, minimal drainage, KIMBERLEY showing darker sanguinous drainage.) GI Palp: Yes Soft to palpation and Yes Tenderness to palpation present (GI) ( Very minimal tenderness) Auscultation: normal bowel sounds DS: Data Data Completed and Pending Labs on day of discharge: Labs from last 24 hours 06/11/20 06/11/20 06:25 06:25 WBC 13.4 H RBC 4.19 L Hgb 12.5 L Hct 38.1 L MCV 90.9 MCH 29.8 MCHC 32.8 RDW 13.4 Plt Count 225 MPV 10.1 Sodium 136 L Potassium 3.7 Chloride 102 Carbon Dioxide 28 Anion Gap 6 L BUN 13 Creatinine 1.10 Estim Creat Clear Calc 71 Estimated GFR > 60 Glucose 191 H Calcium 8.7 Discharge Plan Discharge Attending physician on discharge: Eliel Lucero Discharging Clinician: Eliel Lucero Anticipated Discharge Date/Time: 06/11/20 10:49 Patient Disposition: Home, Self-Care Activity: may shower, no straining and as tolerated Diet: regular Wound Care Instructions: keep dressing dry, remove dressing to shower and change dressing daily Discharge Instructions: Ambulate 3-4 x per day and as tolerated. No lifting over 15-20lbs. May bathe or shower. Stairs are OK. May drive a car in 3 days. Remove any dressings before shower and replace after. Patient Instructions: Pain Management (DC), Marshall Catheter Placement and Care (DC), Rory-Fernández Drain Care (DC), Open Herniorrhaphy (DC), Umbilical Hernia (DC) Follow-up/Referrals: Eliel Lucero MD [Physician] - 06/19/20 ( call for appointment) Discharge Medications: New tramadol 50 mg tablet 50 mg PO Q4H PRN (Reason: pain) Qty: 20 RF: 0 ibuprofen 600 mg tablet 600 mg PO Q6H PRN (Reason: pain) Qty: 14 RF: 0 Continued simvastatin 40 mg tablet 40 mg PO HS RF: 0 Other Ambulatory Orders: SARS-CoV-2 RNA, Qual RT-PCR (Routine) Timeframe: 3 Weeks [facility] Ordered By: Eliel Lucero Date
--- NOTE | 2020-06-11 12:24 | PC.NURSE ---
Education to patient regarding care of incision site and dressing changes. Dressing gauze and tape given. Pt tolerated removal of KIMBERLEY drain. Education on care and dressing of drain given. Pt verbaizes understanding to all.
== END 2020-06-11 12:20 | disposition home or self-care (01) | DRG 227 ==
LOC: ANH3MED 06-11 10:51
PROVIDERS: Admitting Provider Surgery; PCP Emergency Medicine; Visit Provider Surgery
PROC: 0WQF0ZZ Repair Abdominal Wall, Open Approach (ICD-10-PCS; principal; 2020-06-08 10:30)
DX: K43.2 Incisional hernia without obstruction or gangrene (principal); F12.20 Cannabis dependence, uncomplicated
CPT/HCPCS: 36415; 80048; 85027; A9270; C1781; C9113; C9290; G0378; G0379; J0690; J1170; J1650; J1741; J1885; J2250; J2405; J3010; J7120

== ENCOUNTER 2020-06-30 12:13 | Emergency (ER) | payer BC, SELFPAY ==
--- NOTE | ~2020-06-30 | XR_ITS ---
EXAMINATION: XR shoulder RT min 2V EXAM DATE: 06/30/2020 13:20 INDICATION: Initial encounter following injury, with pain of the right shoulder, developed after rol ling logs. TECHNIQUE: The following right shoulder projections obtained: frontal projection with internal rotati on, frontal projection with external rotation, Grashey, and scapular Y view (4+ views). Comparison is made to prior examination from 07/12/2019. FINDINGS: Small right humeral head sclerotic focus, bone island unchanged. No evidence of right shou lder rotator cuff calcific tendinosis. There is mild acromioclavicular joint primary osteoarthritis. There are no acute fractures or dislocations identified. There is no subcutaneous gas. The soft ti ssue is unremarkable. There are no radiopaque foreign bodies. IMPRESSION: Mild right acromioclavicular osteoarthritis. Reviewed, dictated and finalized at location [facility].
[2020-06-30 12:55] VITALS: BP 118/78; PULSE 85; RESP 16; TEMP 36.7; O2SAT 99
--- NOTE | 2020-06-30 12:58 | ED.GENADULT ---
HPI - General Adult General Chief complaint: Extremity Injury, Upper Stated complaint: Shoulder Pain Time Seen by Provider: 06/30/20 12:58 Source: patient and RN notes reviewed Mode of arrival: ambulatory Limitations: no limitations History of Present Illness HPI narrative: 50-year-old female presents with complaints of intermittent right shoulder pain for the past 14 days. Elio says he initially started having RT shoulder pain after working out in the yard moving tree logs, which had improved but increased over the past 15 hours. Vicodin last this morning at 07:30 without relief, elevation of arm with some relief. He says he visited his PMD today and was sent here for further evaluation and films. Denies numbness or tingling. No known injury. Hurts with movement of shoulder. Denies radiating pain. No loss of mobility. No swelling. Exacerbating factor is movement. Relieving factor is rest and pain medication. The dominant hand is the RIGHT HAND. Remains active. The patient reports he have not been diagnosed with COVID-19. The patient reports he is not waiting for the results of a COVID-19 lab test. The patient reports he do not have fever, chills, weakness, or fatigue. The patient reports he do not have a new or worsening cough or shortness of breath. Denies chest pain. The patient reports he do not have any rhinorrhea, congestion, sore throat, loss of taste, nausea, vomiting, abdominal pain, and diarrhea. Tolerating po intake well. Denies recent traveling. Denies concerns for COVID-19 or exposures been home with limited outdoor exposure except for essential household needs, work, and return home. At this time, patient is not suspected of having COVID-19. Some parts of this dictation were generated by voice recognition software and may contain typographical and/or grammatical inaccuracies. Related Data Home Medications Medication Instructions Recorded Confirmed simvastatin 40 mg PO HS 05/24/20 06/26/20 Allergies Allergy/AdvReac Type Severity Reaction Status Date / Time No Known Allergies Allergy Verified 06/26/20 10:19 Review of Systems Review of Systems: Narrative: CONSTITUTIONAL: Denies fever, chills, sweats. EYES: Denies visual changes, redness, discharge. ENT: Denies rhinorrhea, congestion, sore throat, otalgia. CARDIOVASCULAR: Denies chest pain, palpitations, edema. RESPIRATORY: Denies dyspnea, wheezing, cough. GASTROINTESTINAL: Denies abdominal pain, nausea, vomiting, diarrhea. GENITOURINARY: Denies dysuria, hematuria, abnormal discharge. SKIN: Denies rash or itching. MUSCULOSKELETAL: Denies acute back pain or myalgia. Complains of RT shoulder pain. NEUROLOGIC: Denies numbness or focal weakness. PSYCHIATRIC: Denies anxiety or depression. All other systems reviewed & are unremarkable except as noted in HPI and below. [facility] Past Medical History Medical History (Updated 07/01/20 @ 00:00 by Alden Whalen) Cannabis dependence Incisional hernia without mention of obstruction or gangrene Overweight Surgical History Surgical History (Updated 06/30/20 @ 14:08 by JENNY Murphy) History of appendectomy History of hernia surgery 06/2020 History of knee surgery left History of tonsillectomy Social History Social History Smoking packs per day: 1 Smoking cigarettes per day: 20.0 Years smoked: 30 Smoking pack-years: 30.00 Smoking status: Former smoker Tobacco type: cigarettes Smoking end date: 11/03/18 Alcohol intake: current Substance use: current Substance use type: marijuana Last use: NOVEMBER 2018 Additional occupation/education comments: Maintenance Gender identity (if verbalized by the patient): Male Spiritual care concerns: No Comments At time of signature, agree with nurse past medical, surgical, social, and family history. There is no relevant family history pertinent to the presen
[2020-06-30] MEDS: KETOROLAC (*BKC) 60 MG/2 ML VIAL IM (13:12)
== END 2020-06-30 13:46 | disposition home or self-care (01) ==
PROVIDERS: Emergency Provider Nurse Practitioner Family; PCP Emergency Medicine
DX: M25.511 Pain in right shoulder (principal); M19.011 Primary osteoarthritis, right shoulder; Z87.891 Personal history of nicotine dependence
CPT/HCPCS: 73030; 96372; 99213; G0463; J1885

== ENCOUNTER 2020-08-31 12:19 | Emergency (ER) | payer BC, SELFPAY ==
--- NOTE | ~2020-08-31 | US_ITS ---
US scrotum doppler DATE: 08/31/2020 13:16 INDICATION: Scrotal swelling TECHNIQUE: Real-time and color flow imaging and Doppler analysis of the scrotal contents COMPARISON: None FINDINGS: The right testicle measures 4.4 x 2.1 x 2.9 cm. The left testicle measures 4.4 x 2.7 x 3.4 cm. No suspicious testicular mass lesion or torsion. There is normal vascularity of the testicles on color flow imaging and Doppler analysis. The epididymis appears normal bilaterally. Very small left hydrocele. No varicocele is demonstrated. IMPRESSION: No significant abnormality; no testicular mass lesion or torsion Reviewed, dictated and finalized at [facility]. Reviewed, dictated and finalized at location A.
[2020-08-31 12:34] VITALS: BP 113/77; PULSE 51; RESP 18; TEMP 36.4; O2SAT 99
--- NOTE | 2020-08-31 12:45 | PC.NURSE ---
patient here with left testicular swelling and pain. see triage note. resting in room. aware of expected wait time. assessments documented.
--- NOTE | 2020-08-31 13:23 | ED.MALEGU ---
HPI - Male Genitourinary General Chief complaint: Urogenital-Male Stated complaint: left testicle pain Time Seen by Provider: 08/31/20 12:35 Source: patient Mode of arrival: ambulatory Limitations: no limitations History of Present Illness HPI Narrative: 50-year-old male Generally healthy except that he just had a ventral hernia repaired a month and a half ago Presents for evaluation of left-sided testicular swelling and pain which has been slowly progressive for weeks until becoming painful yesterday He is already been seen in the office for this and referred to urology at [facility] Additionally he notes that he has had some microhematuria which is also being investigated Complaint: testicle pain and testicle swelling Onset (ago): week(s) Duration: progressively worsening Related Data Home Medications Medication Instructions Recorded Confirmed simvastatin 40 mg PO HS 05/24/20 07/24/20 Allergies Allergy/AdvReac Type Severity Reaction Status Date / Time No Known Allergies Allergy Verified 08/31/20 12:37 Review of Systems Review of Systems: All systems reviewed & are unremarkable except as noted in HPI and below Constitutional: Constitutional: Denies chills, Denies fatigue, Denies fever(s), Denies headache(s) and Denies weakness Eyes: Eyes: Denies other visual disturbances ENT: Denies headache(s) and Denies epistaxis Cardiovascular: Cardiovascular: Denies leg edema, Denies palpitations and Denies dyspnea Gastrointestinal: Gastrointestinal: Denies abdominal pain, Denies diarrhea, Denies nausea and Denies vomiting Genitourinary: Genitourinary: Denies hematuria, Denies dysuria, Reports testicular pain and Denies urinary frequency Musculoskeletal: Musculoskeletal: Denies deformity, Denies muscle weakness and Denies numbness Integumentary/Breasts: Skin/Breast: Denies rash, Denies unusual bruising and Denies wounds Neurologic: Denies Abnormal speech present Psychiatric: Psychiatric: Reports no additional psychiatric complaints Endocrine: Endocrine: Denies palpitations Hematologic/Lymphatic: Hematologic/Lymphatic: Denies easy bleeding PMFSH Past Medical History Medical History (Updated 08/31/20 @ 14:13 by Edmund Sun MD) Cannabis dependence Incisional hernia without mention of obstruction or gangrene Overweight Surgical History Surgical History History of appendectomy History of hernia surgery 06/2020 History of knee surgery left History of tonsillectomy Family History Family History Mother Colon cancer Other Bipolar 1 disorder IDDM (insulin dependent diabetes mellitus) Other Diabetes mellitus Family history of malignant neoplasm Social History Social History Smoking packs per day: 1 Smoking cigarettes per day: 20.0 Years smoked: 30 Smoking pack-years: 30.00 Smoking status: Former smoker Tobacco type: cigarettes Smoking end date: 11/03/18 Alcohol intake: current Substance use: current Substance use type: marijuana Last use: NOVEMBER 2018 Additional occupation/education comments: Maintenance Gender identity (if verbalized by the patient): Male Spiritual care concerns: No Exam Const: General: no acute distress, well developed and awake Nutritional Appearance: well nourished Orientation/consciousness: patient oriented x3 (alert) Limitations: no limitations HENMT: Head: normocephalic and atraumatic Ears: external ears normal General nose exam: No nasal discharge present and no epistaxis Face and sinus: face symmetric Eyes: Conjunctivae: conjunctivae normal Sclera: sclerae normal EOM: EOMs intact bilaterally Neck: Neck: normal visual inspection, supple and no JVD Chest: Chest palpation & inspection: deferred Resp: Effort & Inspection: normal respiratory effort and
--- NOTE | 2020-08-31 13:25 | PC.NURSE ---
back from ultrasound. reminded that we do need urine specimen. senior technical business analyst at bedside. labs drawn.
[2020-08-31 13:29] LABS: Basophils Absolute Auto 0.1 K/mm3 (0.0-0.1); Basophils Percent Auto 0.7 % (0.2-1.2); Eosinophils Absolute Auto 0.4 K/mm3 (0-0.3); Eosinophils Percent Auto 4.8 % (0-4.4); Hematocrit 46.8 % (42.0-52.0); Hemoglobin 15.6 g/dL (14.0-18.0); Immature Granulocyte Absolute 0.03 K/mm3 (0.00-0.031); Immature Granulocyte Percent A 0.3 % (0-0.5); Lymphocytes Absolute Auto 2.97 K/mm3 (0.9-3.2); Lymphocytes Percent Auto 33.9 % (18.3-44.2); Mean Corpuscular HGB Conc 33.3 g/dl (32-36); Mean Corpuscular Hemoglobin 30.1 pg (26-34); Mean Corpuscular Volume 90.2 fl (80-100); Mean Platelet Volume 9.5 fl (7.4-10.4); Monocytes Absolute Auto 0.9 K/mm3 (0.1-0.6); Monocytes Percent Auto 9.9 % (2.6-8.5); Neutrophils Absolute Auto 4.4 K/mm3 (1.3-6.7); Neutrophils Percent Auto 50.4 % (45.5-73.1); Platelet Count Result 271 k/mm3 (150-375); Red Blood Count 5.19 M/mm3 (4.6-6.20); Red Cell Distribution Width 12.5 % (11.5-14.5); White Blood Count 8.8 K/mm3 (4.5-10.0)
--- NOTE | 2020-08-31 13:40 | PC.NURSE ---
urine collected and sent to lab.
[2020-08-31 13:52] LABS: Add Urine Microscopic? YES; Appearance Urine Clear (Clear); Bilirubin Urine Negative (Negative); Blood Urine 1+ (Negative); Color Urine Yellow (Yellow); Glucose Urine UA Negative (Negative); Ketones Urine Negative (Negative); Leukocyte Esterase Ur Negative LEU/UL (Negative); Mucus Urine Few /lpf; Nitrate Urine Negative (Negative); Protein Urine Negative (Negative); RBC Urine 0-2 /hpf (0-2); Specific Grav Ur 1.027 (1.001-1.035); Urobilinogen Urine Negative mg/dL (<2.0); WBC Urine 0-3 /hpf
[2020-08-31 14:28] VITALS: BP 128/80; PULSE 80; RESP 18; TEMP 36.8; O2SAT 99
== END 2020-08-31 14:29 | disposition home or self-care (01) ==
PROVIDERS: Emergency Provider Emergency Medicine; PCP Emergency Medicine
DX: N50.812 Left testicular pain (principal); E66.3 Overweight; Z68.25 Body mass index [BMI] 25.0-25.9, adult; Z87.891 Personal history of nicotine dependence
CPT/HCPCS: 36415; 76870; 81001; 85025; 93976; 99284

== ENCOUNTER 2020-09-19 07:01 | Outpatient (CLI) | payer BC, SELFPAY ==
--- NOTE | ~2020-09-19 | CT_ITS ---
EXAMINATION: CT abdomen pelvis wo/w con DATE: 09/19/2020 07:49 INDICATION: Hematuria TECHNIQUE: Computed tomography (CT) of the abdomen and pelvis was performed without and subsequently with 130 cc Omnipaque 350 intravenous contrast. Automated exposure control and iterative reconstructi on technique were employed. Exam dose: 1087.45 mGy-cm total exam DLP. COMPARISON: 02/14/2020 CT abdomen pelvis with IV contrast material 02/14/2020 right upper quadrant abdominal ultrasound FINDINGS: There is mild discoid atelectasis or scarring at the lateral left lung base, left lower lob e. The lung bases are clear of infiltrate or consolidation. Heart size is borderline. No pericardial or pleural effusion. There are calcified hepatic and splenic granulomas. There is a small sliding hiatal hernia. No hepatic, pancreatic, splenic, and adrenal or renal space-occupying mass lesion is evident. There i s a small right renal cyst. The gallbladder is present. No bile duct or pancreatic duct dilatation. No bowel obstruction, bowel wall thickening, pneumatosis or intraperitoneal free air. Evidence of jimmy endectomy. No urinary tract calculus or hydroureteronephrosis. No intraluminal mass lesion or thickening of the wall of the urinary bladder is detected. There is moderate prostate enlargement and some prostate calcification. There is a midline anterior abdominal wall scar. No ventral abdominal wall hernia is identified. No i nguinal hernia. Included skeletal structures are unremarkable. IMPRESSION: Moderate prostate enlargement and calcification Small right renal cyst No urinary tract calculus or hydroureteronephrosis Small sliding hiatal hernia Reviewed, dictated and finalized at [facility]. Reviewed, dictated and finalized at location D. BUILDER
== END 2020-09-19 07:02 | disposition home or self-care (01) ==
PROVIDERS: PCP Emergency Medicine; Visit Provider Nurse Practitioner Family
DX: K44.9 Diaphragmatic hernia without obstruction or gangrene (principal); N28.1 Cyst of kidney, acquired; N40.0 Benign prostatic hyperplasia without lower urinary tract symptoms; R31.29 Other microscopic hematuria
CPT/HCPCS: 74178; Q9967

== ENCOUNTER 2020-11-29 07:59 | Emergency (ER) | payer BC, SELFPAY ==
--- NOTE | ~2020-11-29 | US_ITS ---
EXAMINATION: US scrotum doppler DATE: 11/29/2020 08:56 INDICATION: Left testicular swelling TECHNIQUE: Testicular sonogram utilizing grayscale and Doppler COMPARISON: 08/31/2020 FINDINGS: The right testis measures 4.8 x 1.9 x 3.1 cm. The left testis measures 3.8 x 2.4 x 3.8 cm. Symmetric normal grayscale appearance to both testes. There is normal vascular flow to both testes. The right e pididymis is normal with normal vascular flow. The left epididymis is normal with normal vascular gisela w. There is no varicocele. Small left hydrocele. IMPRESSION: 1. Unchanged small left hydrocele. Otherwise normal testicular ultrasound. Reviewed, dictated and finalized at location B. [facility] [employer]
[2020-11-29 08:02] VITALS: BP 126/80; PULSE 59; RESP 16; TEMP 36.8; O2SAT 99
--- NOTE | 2020-11-29 08:08 | ED.MALEGU ---
HPI - Male Genitourinary General Chief complaint: Urogenital-Male Stated complaint: lt testicle pain & swelling Time Seen by Provider: 11/29/20 08:07 History of Present Illness HPI Narrative: 50 yo male w/ h/o left hydrocele presents to the ED for left testicle pain and swelling. He first noted swelling in his scrotum following hernia surgery a few months ago. At that time he had an ultrasound done showing only a small left hydrocele. He reports that he had no pain and the swelling seemed to have resolved. Yesterday the swelling returned and last night it became painful and kept him from sleeping. No dysuria, hematuria, nausea, vomiting, fever. Related Data Allergies Allergy/AdvReac Type Severity Reaction Status Date / Time No Known Allergies Allergy Verified 08/31/20 12:37 Review of Systems Review of Systems: All systems reviewed & are unremarkable except as noted in HPI and below Constitutional: Constitutional: Denies chills and Denies fever(s) Cardiovascular: Cardiovascular: Denies chest pain Respiratory: Respiratory: Denies dyspnea Gastrointestinal: Gastrointestinal: Denies abdominal pain, Denies nausea and Denies vomiting Genitourinary: Genitourinary: Denies hematuria, Denies dysuria, Denies penile discharge and Reports testicular pain Musculoskeletal: Musculoskeletal: Denies back pain Neurologic: Denies dizziness and Denies weakness PMFSH Past Medical History Medical History Cannabis dependence Incisional hernia without mention of obstruction or gangrene Overweight Surgical History Surgical History History of appendectomy History of hernia surgery 06/2020 History of knee surgery left History of tonsillectomy Family History Family History Mother Colon cancer Other Bipolar 1 disorder IDDM (insulin dependent diabetes mellitus) Other Diabetes mellitus Family history of malignant neoplasm Social History Social History Smoking packs per day: 1 Smoking cigarettes per day: 20.0 Years smoked: 30 Smoking pack-years: 30.00 Smoking status: Former smoker Tobacco type: cigarettes Smoking end date: 11/03/18 Alcohol intake: current Substance use: current Substance use type: marijuana Last use: NOVEMBER 2018 Additional occupation/education comments: Maintenance Gender identity (if verbalized by the patient): Male Spiritual care concerns: No Exam Const: General: healthy appearing, no acute distress and alert Orientation/consciousness: patient oriented x3 HENMT: Head: normal to inspection Neck: Neck: normal visual inspection Chest: Chest palpation & inspection: no tenderness Resp: Effort & Inspection: normal respiratory effort Auscultation: clear to auscultation bilaterally, no rales, no rhonchi and no wheezes Cardio: Jugular venous distension: no JVD Rate: regular rate Rhythm: regular rhythm Heart sounds: no murmurs GI: Inspection: non-distended GI Palp: Yes Soft to palpation and No Tenderness to palpation present (GI) : Testes: testicular swelling on the left and testicular tenderness on the left and diffuse Skin: General skin exam: normal color Neuro: General: patient oriented x3, moves all extremities and no focal motor deficits Speech: normal speech Gait exam (Neuro): Normal gait present Extrem: General: no edema Psych: Appearance: well kempt Affect: normal affect Course Vital Signs Vital signs: Vital Signs Temperature 36.8 C 11/29/20 08:02 Pulse Rate 59 L 11/29/20 08:02 Respiratory Rate 16 11/29/20 08:02 Blood Pressure 126/80 11/29/20 08:02 Pulse Oximetry 99 11/29/20 08:02 Temperature 36.8 C 11/29/20 08:02 Pulse Rate 59 L 11/29/20 08:02 Respiratory Rate 16 11/29/20 08:02 Blood Pres
[2020-11-29 09:17] LABS: Add Urine Microscopic? YES; Appearance Urine Clear (Clear); Bacteria Urine Trace /hpf; Bilirubin Urine Negative (Negative); Blood Urine 2+ (Negative); Color Urine Yellow (Yellow); Glucose Urine UA Negative (Negative); Ketones Urine Negative (Negative); Leukocyte Esterase Ur 1+ LEU/UL (Negative); Mucus Urine Moderate /lpf; Nitrate Urine Negative (Negative); Protein Urine 1+ mg/dL (Negative); RBC Urine 0-2 /hpf (0-2); Squamous Epithelial Cell Urine Rare /hpf (Few); Transitional Epi Cells Urine Rare /hpf (None Seen); Urobilinogen Urine Negative mg/dL (<2.0)
[2020-11-29 09:21] LABS: Specific Grav Ur 1.031 (1.001-1.035)
[2020-11-29] MEDS: KETOROLAC 30 MG/ML VIAL (*BKC) IM (09:34)
== END 2020-11-29 09:43 | disposition home or self-care (01) ==
PROVIDERS: Emergency Provider Emergency Medicine; Family Provider Family Medicine; PCP Emergency Medicine
DX: N43.3 Hydrocele, unspecified (principal); E66.3 Overweight; Z68.23 Body mass index [BMI] 23.0-23.9, adult; Z87.891 Personal history of nicotine dependence
CPT/HCPCS: 76870; 81001; 93976; 96372; 99284; A9270; J1885

== ENCOUNTER 2021-09-19 13:42 | Outpatient (CLI) | payer OTHER, SELFPAY ==
--- NOTE | ~2021-09-19 | US_ITS ---
EXAMINATION: US scrotum doppler DATE: 09/19/2021 14:32 INDICATION: Left testicular swelling and pain. TECHNIQUE: Grayscale and Doppler ultrasound images of the testes were obtained. COMPARISON: Ultrasound 11/29/2020 FINDINGS: The right testis measures 4.2 x 3.4 x 2.8 cm. The left testis measures 4.7 x 3.2 x 2.8 cm. There is normal vascular flow to both testes. The right epididymis is normal with normal vascular gisela w. The left epididymis is normal with normal vascular flow. There is a moderate-sized left hydrocele. IMPRESSION: 1. Moderate-sized left hydrocele with mild interval worsening. Reviewed, dictated and finalized at location A. PULLER
--- NOTE | ~2021-09-19 | US_ITS ---
. EXAMINATION: US soft tissue head and neck DATE: 09/19/2021 14:15 INDICATION: Right neck mass. TECHNIQUE: Multiple grayscale and Doppler ultrasound images of the right neck were obtained. COMPARISON: None FINDINGS: There is no abnormal mass or lymphadenopathy in the right neck. IMPRESSION: 1. No abnormal mass or lymphadenopathy in the right neck. Reviewed, dictated and finalized at location A. [employer]
== END 2021-09-19 13:43 | disposition home or self-care (01) ==
PROVIDERS: PCP Emergency Medicine; Visit Provider Emergency Medicine
DX: R22.1 Localized swelling, mass and lump, neck (principal); N43.3 Hydrocele, unspecified
CPT/HCPCS: 76536; 76870; 93976

== ENCOUNTER 2021-09-20 13:38 | Emergency (ER) | payer OTHER, SELFPAY ==
[2021-09-20 13:41] VITALS: BP 124/79; PULSE 85; RESP 16; TEMP 36.8; O2SAT 99
--- NOTE | 2021-09-20 15:34 | ED.MALEGU ---
HPI - Male Genitourinary General Chief complaint: Urogenital-Male Stated complaint: 6MONTHS L TESTICULAR SWELLING/PAIN Time Seen by Provider: 09/20/21 14:37 Source: patient Mode of arrival: ambulatory Limitations: no limitations History of Present Illness HPI Narrative: Patient is a 51-year-old male presents emergency department for reevaluation of his left hydrocele. Patient reports he has been present for approximately 6 months and it first with a small hydrocele but over time has grown. Patient reports that he followed up with his primary care Dr. Saxena due to intermittent sharp pains to the testicle. He had an ultrasound performed yesterday which showed a moderate hydrocele. He reports that his primary care told him to come to the emergency department due to the intermittent discomfort. Patient states that he has not been wearing supportive underwear. He has not been taking any NSAIDs or other medications to alleviate his symptoms. Patient denies concern for STDs such as gonorrhea and chlamydia. He reports that his primary care started him on Keflex yesterday. Related Data Home Medications Medication Instructions Recorded Confirmed pravastatin 09/20/21 Allergies Allergy/AdvReac Type Severity Reaction Status Date / Time No Known Allergies Allergy Verified 09/20/21 14:34 Review of Systems Review of Systems: CONSTITUTIONAL: Denies fever, chills, or sweats. EYES: Denies visual changes, redness, or discharge. ENT: Denies rhinorrhea, congestion, sore throat, or otalgia. CARDIOVASCULAR: Denies chest pain, palpitations, or edema. RESPIRATORY: Denies cough or dyspnea. GASTROINTESTINAL: Denies abdominal pain, nausea, vomiting, or diarrhea. GENITOURINARY: Reports testicle swelling and intermittent pain denies dysuria or hematuria. SKIN: Denies rash or itching. MUSCULOSKELETAL: Denies back pain, joint pain, or myalgia. NEUROLOGIC: Denies headache, numbness, dizziness, or weakness. PSYCHIATRIC: Denies anxiety or depression. [facility] Past Medical History Medical History (Updated 09/20/21 @ 15:42 by Stewart Holguin PA-C) Cannabis dependence Incisional hernia without mention of obstruction or gangrene Overweight Surgical History Surgical History History of appendectomy History of hernia surgery 06/2020 History of knee surgery left History of tonsillectomy Family History Family History Mother Colon cancer Other Bipolar 1 disorder IDDM (insulin dependent diabetes mellitus) Other Diabetes mellitus Family history of malignant neoplasm Social History Social History Smoking packs per day: 1 Smoking cigarettes per day: 20.0 Years smoked: 30 Smoking pack-years: 30.00 Smoking status: Former smoker Tobacco type: cigarettes Smoking end date: 11/03/18 Alcohol intake: current Substance use: current Substance use type: marijuana Last use: NOVEMBER 2018 Additional occupation/education comments: Maintenance Gender identity (if verbalized by the patient): Male Spiritual care concerns: No Exam Narrative: GENERAL: Well-appearing, well-nourished, and in no acute distress. HEAD: Normocephalic, atraumatic. EYES: PERRLA and EOMI. CHEST: Clear to auscultation. No respiratory distress. No wheezes rales or rhonchi HEART: Regular rate and rhythm. No murmur heard. Normal peripheral pulses. GENITALIA: Enlarged left testicle. intermittently tender to palpation with manipulation especially around eppidydymis and when manipulated. No necrosis or increased warmth or erythema. No penile sores or discharge. EXTREMITIES: Normal range of motion. No edema. SKIN: Warm, dry, no rash. NEURO: No focal deficits. Alert and oriented x3. PSYCH: Normal mood and affect. Course Vital Signs Vital signs: Vital Signs Temperature 98.2 F
[2021-09-20 16:02] VITALS: BP 124/75; PULSE 63; RESP 18; O2SAT 96
== END 2021-09-20 16:04 | disposition home or self-care (01) ==
PROVIDERS: Emergency Provider Emergency Medicine; PCP Emergency Medicine
DX: N43.3 Hydrocele, unspecified (principal); E66.3 Overweight; Z68.26 Body mass index [BMI] 26.0-26.9, adult; Z87.891 Personal history of nicotine dependence
CPT/HCPCS: 99281

== ENCOUNTER 2024-02-20 12:37 | Emergency (ER) | payer OTHER, SELFPAY ==
--- NOTE | ~2024-02-20 | XR_ITS ---
Clinical Indication: Chest pain PA and lateral views of the chest: Comparison: None Findings: The lungs are clear, without evidence of focal consolidation or pleural effusion. Cardiome diastinal silhouette is within normal limits. Bones and soft tissues are unremarkable. Impression: Normal chest. Reviewed, dictated and finalized at location . Impression: Normal chest.
[2024-02-20 12:40] VITALS: BP 128/71; PULSE 59; RESP 19; TEMP 36.9; O2SAT 98
--- NOTE | 2024-02-20 12:46 | ECG_ITS ---
SEE SCANNED COPY FOR CONFIRMED REPORT MTDD
[2024-02-20 12:47] VITALS: O2SAT 98
[2024-02-20] MEDS: ASPIRIN 81 MG CHEWABLE TABLET 324 MG PO (12:52)
[2024-02-20 13:10] LABS: Basophils Absolute Auto 0.1 K/mm3 (0.0-0.1); Basophils Percent Auto 0.7 % (0.2-1.2); Eosinophils Absolute Auto 0.3 K/mm3 (0-0.3); Eosinophils Percent Auto 2.7 % (0-4.4); Hematocrit 44.9 % (42.0-52.0); Hemoglobin 15.1 g/dL (14.0-18.0); Immature Granulocyte Absolute 0.06 K/mm3 (0.00-0.031); Immature Granulocyte Percent A 0.6 % (0-0.5); Lymphocytes Absolute Auto 3.31 K/mm3 (0.9-3.2); Lymphocytes Percent Auto 33.6 % (18.3-44.2); Mean Corpuscular HGB Conc 33.6 g/dl (32-36); Mean Corpuscular Volume 89.1 fl (80-100); Mean Platelet Volume 9.8 fl (7.4-10.4); Monocytes Absolute Auto 0.8 K/mm3 (0.1-0.6); Monocytes Percent Auto 8.2 % (2.6-8.5); Neutrophils Absolute Auto 5.3 K/mm3 (1.3-6.7); Neutrophils Percent Auto 54.2 % (45.5-73.1); Platelet Count Result 236 k/mm3 (150-375); Red Blood Count 5.04 M/mm3 (4.6-6.20); Red Cell Distribution Width 12.8 % (11.5-14.5); White Blood Count 9.9 K/mm3 (4.5-10.0)
[2024-02-20 13:20] LABS: Alanine Aminotransferase 18 U/L (6-50); Albumin Level 4.6 g/dL (3.5-5.1); Alkaline Phosphatase 72 U/L (38-126); Anion Gap 8 mmol/L (4-12); Aspartate Amino Transferase 24 U/L (17-59); Bilirubin,Total 0.6 mg/dL (0.2-1.3); Blood Urea Nitrogen 12 mg/dL (9-20); Calcium 9.2 mg/dL (8.4-10.2); Carbon Dioxide 24 mmol/L (22-30); Chloride 110 mmol/L (98-107); Estimated CRCL calculation 82 ml/min; Estimated Glomerular Filt Rate > 60; Glucose 108 mg/dL (65-110); Lipase 407 U/L (23-300); Sodium 142 mmol/L (137-145)
[2024-02-20 13:21] LABS: Prothrombin Time 13.4 Seconds (11.1-14.7)
[2024-02-20 13:31] LABS: Troponin I < 0.012 ng/mL (0.000-0.034)
[2024-02-20 13:49] VITALS: BP 124/74; PULSE 56; RESP 15; O2SAT 95
[2024-02-20 14:43] VITALS: BP 126/90; PULSE 56; RESP 15; O2SAT 98
--- NOTE | 2024-02-20 15:16 | ECG_ITS ---
SEE SCANNED COPY FOR CONFIRMED REPORT MTDD
[2024-02-20 15:53] VITALS: BP 122/72; PULSE 62; RESP 16; O2SAT 100
[2024-02-20 16:12] LABS: Troponin I < 0.012 ng/mL (0.000-0.034)
--- NOTE | 2024-02-20 16:26 | ED_ITS ---
HPI - Chest Pain General Chief Complaint: Chest Pain Stated Complaint: CP Time Seen by Provider: 02/20/24 12:45 Source: patient Mode of arrival: ambulatory Limitations: no limitations History of Present Illness HPI narrative: 53-year-old otherwise healthy here with a complaint of intermittent chest pain on off for past 1 and half months. He states the pain is in the mid chest area nonradiating. In times it is sharp at times it is aching in nature and not related to any strenuous activity. He denies any shortness of breath, nausea or diaphoresis with the pain. No previous history of CAD P MD complaint: chest pain Onset (ago): month(s) (1.5) Pain location: parasternal Pain radiation: left arm Relieving factors: nothing Risk Factors Coronary artery disease risk factors: none Related Data Home Medications Medication Instructions Recorded Confirmed pravastatin 40 mg tablet 09/20/21 Allergies Allergy/AdvReac Type Severity Reaction Status Date / Time No Known Allergies Allergy Verified 09/20/21 14:34 Review of Systems Review of Systems: All systems reviewed & are unremarkable except as noted in HPI and below Constitutional: Constitutional: Reports no additional constitutional complaints Eyes: Eyes: Reports no additional eye complaints ENT: Reports system reviewed and no additional complaints, except as documen nohemy Cardiovascular: Cardiovascular: Reports as per HPI Respiratory: Respiratory: Reports no additional respiratory complaints Gastrointestinal: Gastrointestinal: Reports no additional gastrointestinal complaints Musculoskeletal: Musculoskeletal: Reports no additional musculoskeletal complaints Integumentary/Breasts: Skin/Breast: Reports system reviewed and no additional complaints, except as docu Neurologic: Reports system reviewed and no additional complaints, except as documented Psychiatric: Psychiatric: Reports no additional psychiatric complaints Endocrine: Endocrine: Reports no additional endocrine complaints [facility]LY [facility] Past Medical History Medical History (Updated 02/20/24 @ 16:40 by Sj Sarkar MD) Cannabis dependence Incisional hernia without mention of obstruction or gangrene Overweight Surgical History Surgical History History of appendectomy History of hernia surgery 06/2020 History of knee surgery left History of tonsillectomy Family History Family History Mother Colon cancer Other Bipolar 1 disorder IDDM (insulin dependent diabetes mellitus) Other Diabetes mellitus Family history of malignant neoplasm Social History Social History Smoking packs per day: 1 Smoking cigarettes per day: 20.0 Years smoked: 30 Smoking pack-years: 30.00 Smoking status: Former smoker Tobacco type: cigarettes Smoking end date: 11/03/18 Alcohol intake: current Substance use: current Substance use type: marijuana Last use: NOVEMBER 2018 Living arrangements: with family 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 HEAD: Normocephalic, atraumatic. EYES: PERRLA and EOMI. ENT: Nares clear, no rhinorrhea or epistaxis. Mucous membranes moist. NECK: Supple. CHEST: Clear to auscultation. No respiratory distress. HEART: Regular rate and rhythm. No murmur heard. Normal peripheral pulses. ABDOMEN: Soft, nontender, nondistended, normal active bowel sounds. EXTREMITIES: Normal range of motion. No edema. SKIN: Warm, dry, no rash. NEURO: No focal deficits. Alert and oriented x3. PSYCH: Normal mood and affect. Course Course Emergency Course: Patient comfortably resting on the bed in no discomfort had no further episodes of chest pain. I did inform him about his EKG, labs, chest x-ray findings. Bec ause of his pain most likely noncardiac recommended him to follow with his primary doctor for further test Vital Signs Vital signs: Vital Signs Temperature 36.9 C 02/20/24 12:40 Pulse Rate 59 L 02/20/24 12:40 Respiratory Rate 19 02/20/24 12:40 Blood Pressure 128/71 02/20/24 12:40 Pulse Oximetry 98 02/20/24 12:40 Oxygen Delivery Room Air 02/20/24 12:40 Temperature 36.9 C 02/20/24 12:40 Pulse Rate 62 02/20/24 15:53 Respiratory Rate 16 02/20/24 15:53 Blood Pressure 122/72 02/20/24 15:53 Pulse Oximetry 100 02/20/24 15:53 Oxygen Delivery Room Air 02/20/24 12:47 MDM - Chest Pain Differential Diagnosis Differential diagnosis: Likely unstable angina pectoris, atypical chest pain and chest pain Medical Records Data Attestation: I reviewed the patient's medical records. Lab Data Attestation: I reviewed the patient's lab results. 02/20/24 13:04 02/20/24 13:04 Labs: Lab Results 02/20/24 02/20/24 Range/Units 13:04 15:17 WBC 9.9 (4.5-10.0) K/mm3 RBC 5.04 (4.6-6.20) M/mm3 Hgb 15.1 (14.0-18.0) g/dL Hct 44.9 (42.0-52.0) % MCV 89.1 (80-100) fl MCH 30.0 (26-34) pg MCHC 33.6 (32-36) g/dl RDW 12.8 (11.5-14.5) % Plt Count 236 (150-375) k/mm3 MPV 9.8 (7.4-10.4) fl Immature Gran % (Auto) 0.6 H (0-0.5) % Neut % (Auto) 54.2 (45.5-73.1) % Lymph % (Auto) 33.6 (18.3-44.2) % [place] % (Auto) 8.2 (2.6-8.5) % Eos % (Auto) 2.7 (0-4.4) % Baso % (Auto) 0.7 (0.2-1.2) % Lymph # (Auto) 3.31 H (0.9-3.2) K/mm3 [place] # (Auto) 0.8 H (0.1-0.6) K/mm3 Eos # (Auto) 0.3 (0-0.3) K/mm3 Baso # (Auto) 0.1 (0.0-0.1) K/mm3 Abs Immat Gran (auto) 0.06 H (0.00-0.031) K/mm3 Absolute Neuts (auto) 5.3 (1.3-6.7) K/mm3 Absolute Nucleated RBC 0.000 (0.0-0.012) K/mm3 Nucleated RBC % 0.0 (0.0-0.2) % PT 13.4 (11.1-14.7) Seconds INR 1.0 APTT 30.0 (22.3-36.8) Seconds Sodium 142 (137-145) mmol/L Potassium 4.0 (3.4-5.0) mmol/L Chloride 110 H (98-107) mmol/L Carbon Dioxide 24 (22-30) mmol/L Anion Gap 8 (4-12) mmol/L BUN 12 (9-20) mg/dL Creatinine 0.90 (0.7-1.3) mg/dL Estim Creat Clear Calc 82 ml/min Estimated GFR > 60 (59 - ) Glucose 108 (65-110) mg/dL Calcium 9.2 (8.4-10.2) mg/dL Total Bilirubin 0.6 (0.2-1.3) mg/dL AST 24 (17-59) U/L ALT 18 (6-50) U/L Alkaline Phosphatase 72 (38-126) U/L Troponin I < 0.012 < 0.012 (0.000-0.034) ng/mL Total Protein 7.0 (6.3-8.2) g/dL Albumin 4.6 (3.5-5.1) g/dL Lipase 407 H (23-300) U/L Imaging Data Radiologist's impression: ITS Impressions Chest X-Ray 02/20/24 13:54 Impression: Normal chest. ECG Data EKG #1: ECG completion time: 12:43 EKG Interpretation: normal rate (62), sinus rhythm, no ectopy, no ST changes and NL axis EKG #2: ECG completion date: 02/20/24 ECG completion time: 15:16 EKG Interpretation: bradycardia (52), sinus rhythm, no ST changes, normal QT and NL axis Discharge Plan Discharge Clinical Impression: Atypical chest pain Patient Disposition: Home, Self-Care Condition: Stable Instructions: Chest Pain (ED) Prescriptions: No Action pravastatin 40 mg tablet Follow-up/Referrals: Kobi Saxena MD [Primary Care Provider] - Time of Disposition: 16:37 Quality HEART score for chest pain patients History: slightly suspicious ECG: normal Age: > 45 and < 65 years Risk factors: no risk factors known Troponin: > or = to 3x normal limit Heart score: 3
== END 2024-02-20 17:16 | disposition home or self-care (01) ==
PROVIDERS: Emergency Provider Family Medicine; PCP Emergency Medicine
DX: R07.89 Other chest pain (principal); E66.3 Overweight; Z68.26 Body mass index [BMI] 26.0-26.9, adult; Z87.891 Personal history of nicotine dependence; R94.31 Abnormal electrocardiogram [ECG] [EKG]; R00.1 Bradycardia, unspecified
CPT/HCPCS: 36415; 71046; 80053; 83690; 84484; 85025; 85610; 85730; 93005; 99284; A9270